=== PATIENT | female | born 1970 | race Caucasian/White ===

== ENCOUNTER 2018-06-25 07:03 | Day surgery (SDC) | payer OTHER ==
[2018-06-24 14:41] VITALS: BMI 37.4
--- NOTE | 2018-06-25 09:35 | OP ---
DATE OF OPERATION: 06/25/2018 SURGEON: Jasper Alcantara MD PREOPERATIVE DIAGNOSIS: Weight regain status post prior Blaze-en-Y gastric bypass. 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 PROCEDURE: Upper endoscopy/esophagogastroduodenoscopy. ESTIMATED BLOOD LOSS: Zero. ANESTHESIA: MAC. REASON FOR PROCEDURE: This is a 47-year-old female who presented to the office for weight regain. She had a prior Blaze-en-Y gastric bypass done at another facility in the past. In order to evaluate for possible dilation of her gastric outlet and gastrojejunostomy, an upper endoscopy was scheduled. The risks and benefits of the procedure were explained, including bleeding; infection; injury to surrounding structures including the oral cavity, esophagus, gastric pouch, jejunum, outlet; perforations; strictures; OK; DVT; PE as some of the complications. She understood and signed informed consent. DESCRIPTION OF PROCEDURE: Patient was placed in the left lateral decubitus position. She underwent MAC by Anesthesia. Timeout was performed. The endoscope was placed into the patient's mouth and inserted into the esophagus, into the gastric pouch at the level of the gastric outlet. The gastric outlet was noted to be dilated to approximately 3 cm, consistent with one possible reason for weight regain. The stomach was suctioned, endoscope fully removed. Patient tolerated the procedure well, was sent to recovery room. JASPER ALCANTARA M.D. [id number]
[2018-06-25 09:56] VITALS: BP 131/88; PULSE 70; TEMP 97.8
== END 2018-06-25 09:48 | disposition home or self-care (01) ==
LOC: JASU-ENDO 07:03
PROVIDERS: ATTEND Surgery
PROC: 0DJ08ZZ Inspection of Upper Intestinal Tract, Via Natural or Artificial Opening Endoscopic (ICD-10-PCS; principal; 2018-06-25 07:30)
DX: E66.01 Morbid (severe) obesity due to excess calories (principal); Z98.84 Bariatric surgery status

== ENCOUNTER 2018-11-18 09:37 | Emergency (ER) | payer OTHER ==
[2018-11-18 09:46] VITALS: BP 146/86; PULSE 71; TEMP 97.5; BMI 34.6
[2018-11-18] MEDS ORDERED: KETOROLAC TROMETHAMINE 60 MG/2 ML VIAL IM ONE (10:35)
[2018-11-18] MEDS ORDERED: CYCLOBENZAPRINE HCL 10 MG TABLET (FP) PO ONE (10:36)
[2018-11-18] MEDS ORDERED: LIDOCAINE 5% TOPICAL PATCH TP ONE (10:36)
--- NOTE | 2018-11-18 10:38 | PDOC ---
History of Present Illness - General Chief Complaint: Head/Neck problem Stated Complaint: NECK PAIN Time Seen by Provider: 11/18/18 10:03 History Source: Patient Exam Limitations: No Limitations Past History - Travel Traveled outside of the country in the last 30 days: No Close contact w/someone who was outside of country & ill: No - Past Medical History Allergies/Adverse Reactions: Allergies Allergy/AdvReac Type Severity Reaction Status Date / Time No Known Allergies Allergy Verified 11/18/18 09:44 Home Medications: Ambulatory Orders Olmesartan Medoxomil 20 mg PO DAILY 06/25/18 Anemia: Yes Asthma: No Cancer: No Cardiac Disorders: No CVA: No COPD: No CHF: No Dementia: No Diabetes: No GI Disorders: No Disorders: No HTN: No Hypercholesterolemia: No Liver Disease: No Seizures: No Thyroid Disease: No - Surgical History Abdominal Surgery: Yes (gastric bypass surgery) Appendectomy: No Cardiac Surgery: No Cholecystectomy: No Lung Surgery: No Neurologic Surgery: No Orthopedic Surgery: No - Immunization History Td Vaccination: No TDAP Vaccination: No Immunization Up to Date: Yes - Suicide/Smoking/Psychosocial Hx Smoking Status: Yes Smoking History: Current every day smoker Years of Tobacco Use: 4 Have you smoked in the past 12 months: Yes Number of Cigarettes Smoked Daily: 10 Cigars Per Day: 0 Information on smoking cessation initiated: No 'Breaking Loose' booklet given: 10/15/15 Hx Alcohol Use: No Drug/Substance Use Hx: No Substance Use Type: None Hx Substance Use Treatment: No Review of Systems - Review of Systems Able to Perform ROS?: Yes Comments:: 11/18/18 10:33 CONSTITUTIONAL: Absent: fever, chills, diaphoresis, generalized weakness, malaise, loss of appetite HEENT: Present: neck pain Absent: rhinorrhea, nasal congestion, throat pain, throat swelling, difficulty swallowing, mouth swelling, ear pain, eye pain, visual Changes MUSCULOSKELETAL: Present: myalgia Absent: arthralgia, joint swelling SKIN: Absent: rash, itching, pallor NEUROLOGIC: Absent: headache, focal weakness or paresthesias, dizziness, unsteady gait, seizure, mental status changes, bladder or bowel incontinence PSYCHIATRIC: Absent: anxiety, depression, suicidal or homicidal ideation, hallucinations. Is the patient limited Arabic proficient: No *Physical Exam - Vital Signs Last Vital Signs Temp Pulse Resp BP Pulse Ox 97.5 F L 71 16 146/86 100 11/18/18 09:45 11/18/18 09:45 11/18/18 09:45 11/18/18 09:45 11/18/18 09:45 - Physical Exam Comments: 11/18/18 10:34 GENERAL: The patient is awake, alert, and fully oriented, in no acute distress. HEAD: Normal with no signs of trauma. EYES: Pupils equal, round and reactive to light, extraocular movements intact, sclera anicteric, conjunctiva clear. NECK: TTP of the L sternocleidomastoid at both the insertion of the neck and the clavicle, with palpable knot. Range of motion decreased due to pain. No JVD or thyromegaly. No LAD EXTREMITIES: Normal range of motion, no edema. NEUROLOGICAL: Normal speech, normal gait. PSYCH: Normal mood, normal affect. SKIN: Warm, Dry, normal turgor, no rashes or lesions noted. Medical Decision Making - Medical Decision Making 11/18/18 10:36 The patient is a 48-year-old female with no past medical history, who presents to the ER with left-sided neck pain since this morning. Patient states that she was making the bed when she twisted her neck around suddenly. She states that after she did that she felt pain on the left side. She states it hurts to look in that direction. Denies loss of consciousness, fever, chills, headache, numbness and tingling and weakness to the upper extremities. A/P: Neck pain On exam tenderness to palpation of the left sternocleidomastoid at both the insertion points at the neck and clavicle. Palpable knot felt. patient is neurologically intact with no gross focal deficits. Suspect muscle spasm given no trauma. No midline tenderness. We will treat with Toradol, lidocaine patch and Flexeril. Discharge home I discussed the physical exam findings, ancillary test results and final diagnoses with the patient. I answered all of the patient's questions. The patient was satisfied with the care received and felt comfortable with the discharge plan and treatment plan. The Patient agrees to follow up with the primary care physician/specialist within 24-72 hours. Return precautions were given. *DC/Admit/Observation/Transfer Diagnosis at time of Disposition: Neck pain - Discharge Dispostion Disposition: HOME Condition at time of disposition: Stable Decision to Admit order: No - Referrals Referrals: David Gonzalez MD [Primary Care Provider] - Praveen Fritz MD [Staff Physician] - - Patient Instructions Printed Discharge Instructions: DI for Neck Pain Additional Instructions: You were evaluated for your neck pain today. It is most likely due to a muscle spasm Please take the Motrin as directed Take the Flexiril every 8 hours the first day. Then take the medication at night only. Do not drink or drive after taking this medication as it may make you drowsy. You may apply warm compresses to the area. Please follow up with orthopedics if your symptoms do not improve this week; a referral has been provided to you Return to the ER for worsening pain despite treatment, numbness/weakness down the extremities, changes in the way you walk, numbness/tingling to the groin, if you have bladder/bowel incontinence, or if you have any changes in your symptoms. Usted fue evaluado para murguia dolor de belen aung. Lo ms probable es que se deba a un espasmo muscular Por favor tome la Motrin macy se indica [place] el Flexiril cada 8 horas el primer da. Luego tome el medicamento solo por la noche. No david ni conduzca despus de [place] dorene medicamento, ya que puede hacerlo sentir somnoliento. Puede aplicar compresas calientes en la scar. Por favor, siga con la ortopedia si valente sntomas no mejoran esta semana; se le lin proporcionado aneudy remisin Regrese a urgencias para empeorar el dolor a pesar del tratamiento, entumecimiento/debilidad en las extremidades, cambios en la forma de caminar, entumecimiento/hormigueo en la juliet, si tiene incontinencia urinaria/intestinal , o si tiene algn cambio en valente sntomas. Print Language: LAO - Post Discharge Activity Forms/Work/School Notes: Back to Work
[2018-11-18] MEDS ORDERED: LIDOCAINE 5% TOPICAL PATCH ONE (10:39)
[2018-11-18] MEDS ORDERED: CYCLOBENZAPRINE HCL 10 MG TABLET (FP) ONE (10:39)
[2018-11-18] MEDS ORDERED: KETOROLAC TROMETHAMINE 60 MG/2 ML VIAL ONE (10:39)
[2018-11-18] MEDS ORDERED: LIDOCAINE PATCH REMOVAL MC SCH (22:00)
== END 2018-11-18 10:50 | disposition home or self-care (01) ==
LOC: JERFT 09:37
PROC: 3E0233Z Introduction of Anti-inflammatory into Muscle, Percutaneous Approach (ICD-10-PCS; principal; 2018-11-18)
DX: M62.838 Other muscle spasm (principal)
CPT/HCPCS: 96372; 99281-25

== ENCOUNTER 2019-07-09 15:49 | Emergency (ER) | payer OTHER ==
[2019-07-09 16:02] VITALS: BP 120/98; PULSE 76; TEMP 97.9; BMI 25.0
--- NOTE | 2019-07-09 16:15 | PDOC ---
History of Present Illness - General Chief Complaint: Bite Stated Complaint: DOG BITE Time Seen by Provider: 07/09/19 16:11 - History of Present Illness Initial Comments: 07/09/19 16:11 CHIEF COMPLAINT: dog bite HISTORY OF PRESENT ILLNESS: 48 yo F with hx of HTN presents to fast track s/p dog bite 1 hour [employer]EL [employer]. 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 No recent travel or sick contacts. PAST MEDICAL HISTORY: Denies past medical history FAMILY HISTORY: Denies SOCIAL HISTORY: Denies tobacco, alcohol, illicit drug use. SURGICAL HISTORY: Denies ALLERGIES: No known drug allergies REVIEW OF SYSTEMS General/Constitutional: Denies fever or chills. Denies weakness, weight change. HEENT: Denies change in vision. Denies ear pain or discharge. Denies sore throat. Cardiovascular: Denies chest pain or shortness of breath. Respiratory: Denies cough, wheezing, or hemoptysis. Gastrointestinal: Denies nausea, vomiting, diarrhea or constipation. Denies rectal bleeding. Genitourinary: Denies dysuria, frequency, or change in urination. Musculoskeletal: Denies joint or muscle swelling or pain. Denies neck or back pain. Skin: Dog bite to L arm. Neurologic: Denies headache, vertigo, loss of consciousness, or loss of sensation. PHYSICAL EXAM General Appearance: Well-appearing, appropriately dressed. No apparent distress. HEENT: EOMI, PERRLA, normal ENT inspection, normal voice, TMs normal, pharynx normal. No conjunctival pallor. No photophobia, scleral icterus. Neck: Supple. Trachea midline. No tenderness, rigidity, carotid bruit, stridor , lymphadenopathy, or thyromegaly. Respiratory/Chest: Lungs CTAB. No shortness of breath, chest tenderness, respiratory distress, accessory muscle use. No crackles, rales, rhonchi, stridor , wheezing, dullness Cardiovascular: RRR. S1, S2. No JVD, murmur, bradycardia, tachycardia. Vascular Pulses: Dorsalis-Pedis (R): 2+, Dorsalis-Pedis (L): 2+ Gastrointestinal/Abdominal: Normal bowel sounds. Abdomen soft, non-distended. No tenderness or rebound tenderness. No organomegaly, pulsatile mass, guarding , hernia, hepatomegaly, splenomegaly. Lymphatic: No adenopathy, tenderness. Musculoskeletal/Extremities: Normal inspection. FROM of all extremities, normal capillary refill. Pelvis Stable. No CVA tenderness. No tenderness to extremities, pedal edema, swelling, erythema or deformity. Integumentary: Dog bite to L arm, small lac approximately 0.75 cm in length with puncture wound and surrounding ecchymosis to volar aspect of forearm. Appropriate color, dry, warm. 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 Fully oriented, alert. Appropriate mood/affect. Motor strength 5/5. No appreciable EOM palsy, facial droop or sensory deficit. Past History - Past Medical History Allergies/Adverse Reactions: Allergies Allergy/AdvReac Type Severity Reaction Status Date / Time No Known Allergies Allergy Verified 07/09/19 15:57 Home Medications: Ambulatory Orders Olmesartan Medoxomil 20 mg PO DAILY 06/25/18 Cyclobenzaprine HCl [Flexeril -] 10 mg PO HS #10 tablet 11/18/18 Ibuprofen 600 mg PO Q6H #30 tablet 11/18/18 Amox-Tr/K Cl [Augmentin - 875Mg Tablet] 1 tab PO BID #14 tablet 07/09/19 Anemia: Yes Asthma: No Cancer: No Cardiac Disorders: No CVA: No COPD: No CHF: No Dementia: No Diabetes: No GI Disorders: No Disorders: No HTN: No Hypercholesterolemia: No Liver Disease: No Psychiatric Problems: Yes (Depression) Seizures: No Thyroid Disease: No - Surgical History Abdominal Surgery: Yes (gastric bypass surgery) Appendectomy: No Cardiac Surgery: No Cholecystectomy: No Lung Surgery: No Neurologic Surgery: No Orthopedic Surgery: No - Immunization History Td Vaccination: No TDAP Vaccination: No Immunization Up to Date: Yes - Psycho Social/Smoking Cessation Hx Smoking Status: Yes Smoking History: Never smoked Years of Tobacco Use: 4 Have you smoked in the past 12 months: Yes Number of Cigarettes Smoked Daily: 10 Cigars Per Day: 0 Information on smoking cessation initiated: No 'Breaking Loose' booklet given: 10/15/15 Hx Alcohol Use: No Drug/Substance Use Hx: No Substance Use Type: None Hx Substance Use Treatment: No *Physical Exam - Vital Signs Last Vital Signs Temp Pulse Resp BP Pulse Ox 97.9 F 76 18 120/98 99 07/09/19 15:55 07/09/19 15:55 07/09/19 15:55 07/09/19 15:55 07/09/19 15:55 Medical Decision Making - Medical Decision Making 07/09/19 16:34 48 yo F with hx of HTN presents to fast track s/p dog bite 1 hour [employer]. -tetanus -augmentin Wound irrigated copiously with high pressure NS. Wound left open for closure by secondary intention given puncture wound. RPEP not indicated at this time as animal location is known and can be observed. [facility] documentation completed, faxed and file. Will rx antibiotics, return precautions given. Advised patient to take medication as prescribed and follow up with PCP within 1 week. Advised patient of signs and symptoms for return to ED. Patient verbalized understanding and agrees to plan. Discharge - Discharge Information Problems reviewed: Yes Clinical Impression/Diagnosis: Dog bite Qualifiers: Encounter type: initial encounter Qualified Code(s): W54.0XXA - Bitten by dog, initial encounter Condition: Stable Disposition: HOME - Admission No - Additional Discharge Information Prescriptions: Amox-Tr/K Cl [Augmentin - 875Mg Tablet] 1 tab PO BID #14 tablet - Follow up/Referral Referrals: Raheem Gonzalez MD [Primary Care Provider] - - Patient Discharge Instructions Patient Printed Discharge Instructions: DI for Dog Bite Additional Instructions: Please take medications as prescribed. Complete the entire course of antibiotics. If you develop any redness, warmth, swelling, or increased pain to the site of your dog bite, or you develop fever, chills, nausea, vomiting, or diarrhea, please return to the ER. - Post Discharge Activity
[2019-07-09] MEDS ORDERED: DIPHTH,PERTUSS(ACELL),TET 0.5 ML DISP.SYRIN IM ONE ×2 (16:35→16:40)
[2019-07-09] MEDS ORDERED: AMOX TR/POT CLAV 875MG/125MG TABLETS (FP) PO ONE (16:39)
[2019-07-09] MEDS ORDERED: AMOX TR/POT CLAV 875MG/125MG TABLETS (FP) ONE (16:42)
[2019-07-09] MEDS ORDERED: ACETAMINOPHEN 500 MG TABLET (FP) PO ONE (16:52)
[2019-07-09] MEDS ORDERED: ACETAMINOPHEN 500 MG TABLET (FP) ONE (17:09)
== END 2019-07-09 17:47 | disposition home or self-care (01) ==
LOC: JERFT 15:49
PROC: 3E0234Z Introduction of Serum, Toxoid and Vaccine into Muscle, Percutaneous Approach (ICD-10-PCS; principal; 2019-07-09)
DX: S51.852A Open bite of left forearm, initial encounter (principal); W54.0XXA Bitten by dog, initial encounter; Y93.89 Activity, other specified; Y92.038 Other place in apartment as the place of occurrence of the external cause; Y99.0 Civilian activity done for income or pay; I10 Essential (primary) hypertension
CPT/HCPCS: 90715; 99282-25